=== PATIENT | female | born 1970 | race Two or more races ===

== ENCOUNTER 2018-03-23 11:14 | Emergency (ER) | payer MEDICAID ==
[~2018-03-23] VITALS: Ht 160 cm; Wt 44.0 kg
[2018-03-23 12:08] VITALS: BP 142/85
== END 2018-03-23 12:38 | disposition home or self-care (01) ==
LOC: ER 11:20
DX: M77.8 Other enthesopathies, not elsewhere classified (principal); J06.9 Acute upper respiratory infection, unspecified; J45.909 Unspecified asthma, uncomplicated
CPT/HCPCS: 99283; J7030